=== PATIENT | female | born 1930 | race Caucasian/White ===

== ENCOUNTER 2017-10-20 14:36 | Inpatient (IN) | payer MEDICARE ==
[2017-10-20 16:13] VITALS: BMI 18.6
[2017-10-20] MEDS ORDERED: Acetaminophen 325 MG TAB PO PRN (17:13)
[2017-10-20] MEDS ORDERED: Albuterol Sulfate 2.5 mg/3 ml Neb NEB PRN (19:29)
[2017-10-20] MEDS: Metoprolol Tartrate 25 MG TAB PO SCH (21:34)
[2017-10-20] MEDS: Famotidine 20 MG TAB PO SCH (21:34)
[2017-10-20] MEDS: ISOSORBIDE MONONITRATE 5 MG PO SCH (21:38)
--- NOTE | 2017-10-20 22:33 | HP ---
DATE OF ADMISSION: 10/20/2017 CHIEF COMPLAINT: Significant deconditioning and decreased p.o. intake for therapy. HISTORY OF PRESENTING ILLNESS: This is a very pleasant, frail, confused 87-year-old female , who [place] [facility] [place] with weakness. She was noticed to have a temperature of 101-102 at home. The initial diagnosis was sepsis. Her workup was essentially unrem arkable. She was also noticed to have confusion. Cardiology suspected a non-STEMI and was just mirela barbara medically. She has not been eating or drinking well. Her family does not want a feeding tube. She is a DNR. The plan is to see if she improves anywhere she is here and her p.o. intake improves a nd if not, family most likely will consider hospice. No family members at bedside at present. The p atient is pleasantly confused. She states why is there nobody else with her in this class. She does not know where she is, but she denies any complaints. She was placed on isosorbide, but it has been held due to low blood pressure and supposedly on 5 mg twice a day, the lowest dose we have here is 3 0, so I advised them to just keep it on hold. PAST MEDICAL HISTORY: 1. Hypothyroidism. 2. History of basal cell carcinoma of the head. 3. Gastroesophageal reflux disease. 4. Deconditioning. PAST SURGICAL HISTORY: 1. Cataract extraction. 2. Appendectomy. 3. Left hip replacement. 4. Right elbow surgery. 5. Tonsillectomy. PSYCHOSOCIAL HISTORY: She does have an alcoholic drink daily per old records. No tobacco or IV drug abuse. The patient apparently lived alone next to her daughter. CODE STATUS: Currently is a DNR. FAMILY HISTORY: Noncontributory to current admission. MEDICATIONS: She has been transferred here on the following medications: 1. Aspirin 81 mg daily. 2. Pepcid 20 mg b.i.d. 3. DuoNebs q.i.d. 4. Synthroid 50 mcg daily. 5. Megace 40 mg b.i.d. 6. Lopressor 12.5 mg b.i.d. 7. She is also on isosorbide 5 mg p.o. b.i.d., which we are going to hold ALLERGIES: No known drug allergies. REVIEW OF SYSTEMS: Cardiovascular system: The patient denies any chest pain, shortness of breath, p alpitations, paroxysmal nocturnal dyspnea, orthopnea, or pedal edema. Respiratory system: Denies an y chronic cough, expectoration or pleuritic type chest pain. Gastrointestinal system: Poor p.o. int maria alejandra. History of gastroesophageal reflux disease. She denies any hematemesis, melena, or hematochezi a. Genitourinary system: Denies any frequency, urgency, dysuria or hematuria. Central nervous syst em: Generalized weakness and poor p.o. intake. PHYSICAL EXAMINATION: GENERAL: This is a pleasant 87-year-old pleasantly confused, female, in no apparent distre ss. VITAL SIGNS: She is afebrile, heart rate 95, respirations 20, oxygen saturation 95% on 3 liters, blo od pressure is 111/63. CARDIOVASCULAR SYSTEM: S1, S2 plus. RESPIRATORY SYSTEM: Normal vesicular breath sounds. ABDOMEN: Scaphoid, nontender, bowel sounds heard in all quadrants. EXTREMITIES: Without cyanosis or clubbing. Significant muscle atrophy. CENTRAL NERVOUS SYSTEM: Generalized weakness, cognitive deficits. LABORATORY VALUES: From yesterday shows a white count of 6, H&H is 9.1 and 27.3. Chemistry shows a sodium of 135, potassium 3.7, BUN and creatinine is 10 and 0.78, BNP was 899.8. IMPRESSION: 1. Possible recent non-ST segment elevation myocardial infarction. 2. Persistent encephalopathy. 3. Failure to thrive and decreased p.o. intake. 4. Hypothyroidism. 5. Significant deconditioning. 6. History of possible dementia. 7. Chronic anemia. 8. DNR status. PLAN: 1. Admit her to the swing bed. 2. Resume discharge medications from prior hospital. 3. Nutritional support. Currently, she is on a pureed diet, but we will have speech therapy to see her and to see if her diet can be advanced. 4. Ensure supplements. 5. Three-day calorie count. 6. PT, OT, speech evaluation and treatment. 7. DNR status per out of hospital DNR and documents and apparently her conversation by nurses with honey gary. 8. Recheck laboratory values in the morning. 9. Decubitus precautions. 10. Poor long-term prognosis. 11. Estimated length of stay 7-10 days.
[2017-10-21 05:17] LABS: Band 3 % (5-11); Hemoglobin 8.9 g/dL (12.0-16.0); Lymphocytes 19 % (21-51); MDiff Complete? YES; Mean Corpuscular HGB CONC 34.3 g/dL (32.0-36.0); Mean Corpuscular Hemoglobin 33.3 pg (27.0-31.0); Mean Corpuscular Volume 96.8 fl (81.0-99.0); Mean Platelet Volume 8.1 fL (7.4-10.4); Monocytes 8 % (0-10); Myelocyte 2 % (0-0); Neutrophil 68 % (42-75); PLT Morphology Comment Appears Adequate; Platelet Count 154 thou/uL (130-400); RBC Distribution Width 16.1 % (11.5-14.5); RBC Morphology Normal; Red Blood Cell (RBC) Count 2.68 mill/uL (4.20-5.40); White Blood Cell (WBC) Count 11.1 thou/uL (4.8-10.8)
[2017-10-21 05:24] LABS: Anion Gap 16 mmol/L (10-20); BUN (Urea Nitrogen) 18 mg/dL (9.8-20.1); Calc. Creatinine Clearance 18 mL/min (70-130); Calcium 7.7 mg/dL (7.8-10.44); Carbon Dioxide 15 mmol/L (23-31); Chloride 111 mmol/L (98-107); Estimated GFR-MDRD 30; Potassium 3.9 mmol/L (3.5-5.1); Sodium 138 mmol/L (136-145)
[2017-10-21 05:41] LABS: Glucose 21 mg/dL (83-110)
[2017-10-21] MEDS: Levothyroxine Sodium 50 MCG TAB PO SCH (05:41)
[2017-10-21] MEDS ORDERED: Dextrose 50% Abboject 50 ML SYRINGE ONE (05:44)
[2017-10-21] MEDS ORDERED: Sodium Chloride 0.9% 10 ML ONE (05:45)
[2017-10-21] MEDS: Dextrose 5 % And 0.9 % NaCl 1,000 ML IV SCH ×2 (07:10→20:54)
--- NOTE | 2017-10-21 09:16 | PRG ---
DATE OF SERVICE: 10/21/2017 Mr. Kwong has apparently been less responsive and routine laboratories done this morning showed a critical blood sugar of 21. She was given an amp of D50 and she has been started on D5 normal saline . She is not a diabetic and I do not see any medications which will cause hypoglycemia. She is also now needing oxygen via face mask. I discussed with her daughter Alberta Macias and explained to h er about the change in condition. She is aware of the patient's decline. They do not want any aggre ssive treatment. They also understand about speech therapy's recommendation that she really needs to be n.p.o. due to aspiration risks, but that we are going to keep her on pureed since the family and patient does not want any PEG tube or any artificial means of feeding. In her current condition righ t now the patient is not safe to try to eat anything. OBJECTIVE: VITAL SIGNS: She is afebrile. Her temperature is 102.3 this morning, heart rate 125, oxygen saturat ion 94%, blood pressure 84/52. CARDIOVASCULAR: S1, S2 plus. RESPIRATORY: Normal vesicular breath sounds. ABDOMEN: Soft, nontender, bowel sounds heard in all quadrants. EXTREMITIES: Without cyanosis or clubbing. IMPRESSION: 1 . With her high temperature and tachycardia and hypoglycemia, suspect sepsis. She was worked up ext ensively at [facility] for the same and she was on empiric antibiotics for 8 days. We will do pa n cultures again, but will hold off on any antibiotics. We will do a flu swab also just to be safe. 2. Supportive care. 3. IV fluids. 4. DNR status. 5. Poor long-term prognosis discussed with the daughter in detail and all questions answered. 6. Other assessment is hypothyroidism. 7. Coronary artery disease with recent [id number] elevation myocardial infarction. 8. Gastroesophageal reflux disease. 9. Dementia.
[2017-10-21] MEDS: Famotidine 20 MG TAB PO SCH (09:51)
[2017-10-21] MEDS: Metoprolol Tartrate 25 MG TAB PO SCH ×2 (09:51→20:57)
[2017-10-21] MEDS: ISOSORBIDE MONONITRATE 5 MG PO SCH ×2 (09:52→20:58)
--- NOTE | 2017-10-21 13:47 | RAD ---
PORTABLE AP CHEST: Date: 10/21/17 HISTORY: Cough, shortness of breath, and fever. Declining oxygen saturation. COMPARISON: 10/17/17. FINDINGS: Patient is rotated to the right, which accentuates the mediastinal structures and cardiac silhouette, but the cardiac silhouette is probably borderline enlarged. The interstitial opacifies noted on the prior exam are less prominent, although mild interstitial densities persist in the left upper lung zo ne and may be related to improvement in infectious process. There is suboptimal evaluation of the lef t lung base. Pleural fluid, infiltrate, or atelectasis of the left lung base cannot be excluded. The right humeral head is displaced superiorly, and the humeral head is above the level of the glenoid, w ith erosion of the acromion. There is irregularity and lucency seen involving the medial aspect of th e proximal humeral diaphysis, which is probably related to erosive changes due to articulation with t he inferior aspect of the glenoid in this region. No other interval change. IMPRESSION: 1. Interstitial densities left upper lung zone which have improved from the prior study and are like ly related to improvement in infiltrate. Findings may be related to residual scarring. 2. Suboptimal evaluation of the left lung base. Infiltrate, pleural fluid, or atelectasis cannot be excluded. 3. Prominent elevation right humeral head, which is above the level of the glenoid suggesting chroni c rotator cuff tear. POS: IZABEL
[2017-10-21] MEDS: Acetaminophen 650 MG Suppository PR PRN (16:03)
[2017-10-21] MEDS: Famotidine/PF 20 mg/2ml Vial SLOW IVP SCH (20:55)
[2017-10-21 23:13] LABS: Glucose 76 mg/dL (83-110)
[2017-10-22 05:49] LABS: Band 7 % (5-11); Eosinophils 2 % (0-10); Hemoglobin 8.1 g/dL (12.0-16.0); Lymphocytes 10 % (21-51); MDiff Complete? YES; Mean Corpuscular HGB CONC 32.3 g/dL (32.0-36.0); Mean Corpuscular Hemoglobin 32.2 pg (27.0-31.0); Mean Corpuscular Volume 99.7 fl (81.0-99.0); Mean Platelet Volume 7.7 fL (7.4-10.4); Monocytes 10 % (0-10); Myelocyte 2 % (0-0); Neutrophil 69 % (42-75); PLT Morphology Comment Appears Adequate; Platelet Count 141 thou/uL (130-400); RBC Morphology Normal; Red Blood Cell (RBC) Count 2.52 mill/uL (4.20-5.40); White Blood Cell (WBC) Count 11.6 thou/uL (4.8-10.8)
[2017-10-22 05:53] LABS: Anion Gap 16 mmol/L (10-20); BUN (Urea Nitrogen) 24 mg/dL (9.8-20.1); Calc. Creatinine Clearance 14 mL/min (70-130); Calcium 7.3 mg/dL (7.8-10.44); Carbon Dioxide 14 mmol/L (23-31); Chloride 114 mmol/L (98-107); Estimated GFR-MDRD 22; Glucose 60 mg/dL (83-110); Potassium 3.6 mmol/L (3.5-5.1); Sodium 140 mmol/L (136-145)
[2017-10-22] MEDS: Levothyroxine Sodium 50 MCG TAB PO SCH (06:24)
[2017-10-22] MEDS: Acetaminophen 650 MG Suppository PR PRN (06:25)
[2017-10-22] MEDS: ISOSORBIDE MONONITRATE 5 MG PO SCH (10:09)
[2017-10-22] MEDS: Dextrose 5 % And 0.9 % NaCl 1,000 ML IV SCH (10:09)
[2017-10-22] MEDS: Famotidine/PF 20 mg/2ml Vial SLOW IVP SCH (10:09)
[2017-10-22] MEDS: Metoprolol Tartrate 25 MG TAB PO SCH (10:09)
[2017-10-22 10:22] VITALS: BP 88/53; TEMP 100.3
[2017-10-22] MEDS ORDERED: Haloperidol 1 MG TAB PO PRN (11:05)
[2017-10-22] MEDS ORDERED: Haloperidol Lactate 5 MG/ML VIAL IM PRN (11:24)
[2017-10-22] MEDS ORDERED: Morphine 10 MG/0.5 ML ORAL SYRINGE SL PRN ×4 (17:32→17:35)
[2017-10-22] MEDS ORDERED: ATROPINE 1% DROPS SL PRN ×2 (17:39→17:40)
--- NOTE | 2018-02-20 13:43 | DS ---
DATE OF ADMISSION: 10/20/2017 DATE OF : 10/22/2017 PRINCIPAL DIAGNOSIS: Cardiorespiratory failure. SECONDARY DIAGNOSES: 1. Coronary artery disease with recent [id number] myocardial infarction. 2. Gastroesophageal reflux disease. 3. Dementia. 4. Dysphagia. 5. Hypothyroidism. COMPLICATIONS: None. ADVERSE REACTIONS: None. PROCEDURES: None. CONSULTATIONS: Physical therapy, speech therapy, and occupational therapy. HOSPITAL COURSE: The patient was admitted as a transfer after suffering a recent [id number] my ocardial infarction. She was also noticed to have persistent encephalopathy as well as failure to th rive with poor p.o. intake. Here speech therapy evaluated her and recommended no p.o. intake and PEG tube placement. Family did not want any aggressive measures. They wanted her to be in pureed diet and they understood the risks. She also developed decreased level of consciousness while she was her e and progressively got worse. She was pancultured due to her having temperature, tachycardia, and h ypoglycemia. She had the same thing happened in the other facility where workup essentially was nega tive for any infection. As stated, family did not want any aggressive measures. They wanted her to be a DNR and she slowly dwindled and . She is not a candidate for organ donation. Family did not want an autopsy. For full details, please see chart.
== END 2017-10-22 18:09 | disposition hospice, inpatient (51) | DRG 871 ==
LOC: NAV ACUTE 14:36
PROVIDERS: ADMIT Internal Medicine; ATTEND Internal Medicine
DX: A41.9 Sepsis, unspecified organism (principal); I21.4 Non-ST elevation (NSTEMI) myocardial infarction; G93.40 Encephalopathy, unspecified; E03.9 Hypothyroidism, unspecified; Z51.5 Encounter for palliative care; K21.9 Gastro-esophageal reflux disease without esophagitis; Z85.828 Personal history of other malignant neoplasm of skin; Z96.642 Presence of left artificial hip joint; Z66 Do not resuscitate; Z79.82 Long term (current) use of aspirin; R62.7 Adult failure to thrive; D64.9 Anemia, unspecified; E16.2 Hypoglycemia, unspecified; I25.10 Atherosclerotic heart disease of native coronary artery without angina pectoris; F03.90 Unspecified dementia, unspecified severity, without behavioral disturbance, psychotic disturbance, mood disturbance, and anxiety
CPT/HCPCS: 36415; 36416; 71045; 80048; 85025; 87040; 87077; 87086; 87186; 94640; A4216; A4353; G8996-GN-CN; G8997-GN-CM; J1630; J1956; J7042; J7611; J7620; S0028

== ENCOUNTER 2017-10-22 18:19 | Inpatient (IN) | payer OTHER ==
[2017-10-22] MEDS ORDERED: Morphine 10 MG/0.5 ML ORAL SYRINGE SL PRN ×4 (18:44→18:45)
[2017-10-22] MEDS ORDERED: ATROPINE 1% DROPS SL PRN ×2 (18:45→18:46)
--- NOTE | 2017-10-22 20:31 | PRG ---
DATE OF SERVICE: 10/22/2017 PATIENT OF: Car Montenegro M.D. SUBJECTIVE: The patient is unresponsive. Her family has decided to consult [facility] noel zhang of respiratory distress, fever, agitation and refusal to eat and that she did not wish any PEG or artificial means of feeding. As she is unsafe to eat, she has been placed on hospice and now is rest ing after being given Roxanol. Vital signs have been discontinued at the family's request and she will be followed with [facility] chelsi.
[2017-10-22 21:57] VITALS: TEMP 97
== END 2017-10-22 22:32 | disposition expired | DRG 951 ==
LOC: NAV ACUTE 18:19
PROVIDERS: ADMIT Internal Medicine; ATTEND Internal Medicine
DX: Z51.5 Encounter for palliative care (principal); G93.49 Other encephalopathy; R62.7 Adult failure to thrive; E03.9 Hypothyroidism, unspecified; D53.9 Nutritional anemia, unspecified; Z66 Do not resuscitate